=== PATIENT | female | born 1955 ===

== ENCOUNTER 2018-12-06 12:23 | Emergency (ER) | payer BC ==
--- NOTE | 2018-12-06 12:31 | PDOC ---
History of Present Illness - General Chief Complaint: Lightheaded Stated Complaint: DIZZINESS,HTN Time Seen by Provider: 12/06/18 12:30 - History of Present Illness Initial Comments: Kandi Diaz is a 63yo woman with a PMH of HTN, HLD, RA (on leflunomide) who presents with acute onset of dizziness while at work today. She states that she stood up and felt dizzy, sat down, and continued to feel dizzy. A nurse at her workplace checked her BP and found it to be high. Ms Diaz states that she initially felt lightheaded w/o any sensation of movement, but states that when she sits up currently she feels a sensation of spinning. She is unable to clarify whether the current feeling is the same as the original sensation. She denies any chest pain, SOB, headache, weakness, AMS, fever/chills, neck pain, or other symptoms. She does have a slight cough following a URI two weeks ago. She states that she had been on a cruise to the [place] and had a bad cold immediately after getting home; she also reports severe vertigo along with the cold. All of her URI symptoms have resolved other than the occasional cough. Ms Diaz also reports that she does feel slightly dehydrated. She reports avoiding fluid intake because she has urinary incontinence if she drinks liquids. She is unsure what type of incontinence but does say that she was "supposed to get a mesh" though chose not to. She denies any dysuria, unusual odor, or unusual urinary frequency. She does report taking all of her usual medications today including her BP meds. Past History - Past Medical History Allergies/Adverse Reactions: Allergies Allergy/AdvReac Type Severity Reaction Status Date / Time No Known Allergies Allergy Verified 12/06/18 14:00 Home Medications: Ambulatory Orders Atorvastatin Calcium 20 mg PO DAILY 12/06/18 Leflunomide 20 mg PO DAILY 12/06/18 Losartan/Hydrochlorothiazide [Losartan-Hctz 100-25 mg Tab] 1 tab PO DAILY Meclizine HCl 25 mg PO Q8H PRN #21 tablet 12/06/18 Review of Systems - Review of Systems Comments:: General: No fevers, no chills, no weight or appetite change, no malaise HEENT: No changes in vision, no changes in hearing, no congestion, no sore throat CV: No chest pain, no palpitations, no LE edema Pulm: No SOB, +slight cough, no wheezing GI: No nausea or vomiting, no change in bowel habits, no melena : +chronic frequency (pelvic floor dysfunction), no urgency, no dysuria Musc: No back pain, no joint swelling, no recent injury Skin: No rash, no lesions, no erythema Endo: No excessive thirst, no heat/cold intolerance Heme: No unusual bruising or bleeding, no swollen glands Neuro: No syncope, no numbness/tingling, no focal weakness, +lightheaded/vertigo Vasc: No claudication Psych: No recent change in mood, no SI or HI *Physical Exam - Physical Exam Comments: General: Uncomfortable but in no acute distress HEENT: PERRL, EOMI, no nystagmus, MMM, voice normal, normal neck ROM, no LAD Cards: RRR, no murmur appreciated Pulm: Comfortable on room air, clear to auscultation bilaterally Abd: Soft, nontender, nondistended : No CVA tenderness Ext: Atraumatic. No LE edema. ROM intact. Vasc: Extremities WWP Skin: Normal color, no rashes or lesions Neuro: A&Ox3, CN grossly intact, normal speech, motor/sensory grossly intact and symmetric. No ataxia on heel-banuelos, finger-nose, rapid alternating movements. Slightly unsteady (wobbling) on Romberg test Psych: Mood appropriate to situation ED Treatment Course - LABORATORY CBC & Chemistry Diagram: 12/06/18 13:08 12/06/18 13:08 Medical Decision Making - Medical Decision Making 12/06/18 13:55 Kandi Diaz is a 63yo woman with a PMH of HTN, HLD, RA (on leflunomide) who presents with acute onset of dizziness while at work today. She is unable to clarify whether it is vertigo or lightheadedness, and she denies any additional symptoms. She does report a h/o urinary incontinence 2/2 pelvic floor dysfunction and a recent URI with accompanying vertigo following a cruise to the [place] [facility] 2wks ago. She was hypertensive to 195/95 on arrival. - Benign physical exam w/o neurological deficits. - Ddx includes HTN urgency v emergency, labyrinthitis, benign vertigo, UTI or kidney injury. Unlikely ACS, TIA given lack of associated symptoms. - CBC, CMP, mag, phos, UA, trop, EKG, CXR for evaluation 12/06/18 14:04 - Labs reviewed. Notable for CK 307, trop negative. UA negative - CXR completed. No focal consolidation, effusion, or edema. L hemidiaphragm elevation noted w/ large gastric bubble 12/06/18 14:22 - BP rechecked. Now 174/95. Will give additional dose losartan for continued HTN 12/06/18 14:48 - Seen w/ Dr Carver. Mynor Hallpike text performed. Positive b/l with nystagmus on left test. - Walked to bathroom; unable to walk due to unsteadiness - CT head ordered for evaluation - Meclizine for symptoms 12/06/18 17:15 - CT completed. No significant abnormalities - Feels improved. Able to ambulate to bathroom w/o assistance. - Requesting to be d/c'd home. Will give neuro and ENT follow up. 12/06/18 17:40 - Spoke to Dr Cee, covering for Ms Diaz' PMD Dr Nelson. Will make sure Dr Nelson is aware, and will have the office call Ms Diaz in the morning to schedule a follow up appointment. - Updated Ms Diaz, discussed home care and follow up. She states understanding and agreement with the plan. Discussed with Dr Carver. Martha Epstein PGY1 *DC/Admit/Observation/Transfer Diagnosis at time of Disposition: Vertigo - Discharge Dispostion Disposition: HOME Condition at time of disposition: Stable Decision to Admit order: No - Prescriptions Prescriptions: Meclizine HCl 25 mg PO Q8H PRN #21 tablet PRN Reason: Vertigo - Referrals Referrals: Laina Nelson [Primary Care Provider] - Dedrick Moralez MD [Staff Physician] - Titus Davis DO [Staff Physician] - - Patient Instructions Printed Discharge Instructions: DI for Vertigo Additional Instructions: Discharge Instructions: You were seen in the emergency department for dizziness. You were found to have a condition called vertigo, which is the sensation of spinning/motion, and is most often due to a benign problem with the ears. Home Care and Follow Up: - Continue to take all of you home medications as previously prescribed - You have been prescribed a medication called meclizine. This may be taken every 6-8 hours as needed for symptoms of vertigo - Follow up with your regular doctor within the 2-3 days for management of your hypertension. You may need your medications adjusted. - You have been referred to neurology and ENT for follow up of your vertigo. Make appointments within the next week or as soon as possible. - Seek immediate medical care if your symptoms worsen, you are unable to walk safely, you develop severe nausea/vomiting with the dizziness, or you have any neurological symptoms such as one-sided weakness, numbness/tingling, or confusion. - Post Discharge Activity Forms/Work/School Notes: Back to Work
--- NOTE | 2018-12-06 12:40 | PDOC ---
Attending Attestation - Resident Resident Name: TeteMartha - ED Attending Attestation I have performed the following: I have examined & evaluated the patient, The case was reviewed & discussed with the resident, I agree w/resident's findings & plan, Exceptions are as noted - Medical Decision Making 12/06/18 12:37 63 yo F with ho RA HTN HLD here feeling lightheaded with standing and hypertension bp was 189 sbp. pt does describe a vertiginous component. which she has had in the past recently after returning home from a cruise. does feel unsteady at times with walking. pt mother has had a cva in her 40 ' s. differential ekg labs ua orthostatics. reassess. differential includes anemia htn emergency or urgency infection such as uti, electrolyte abnormality or renal dysfunction, med side effects. due to vertigo component. will obtain ct head. meclizine given and iv hydration ua . 12/06/18 15:56 <Joellen Carver - Last Filed: 12/06/18 15:56> - HPI HPI: 12/06/18 13:48 The patient is a 63-year-old female with a past medical history significant for HTN (compliant with Losartan), HLD, and RA (no on medication) presents to the emergency department with lightheadedness. The patient reports she was at work [employer], at where, when she stood up she felt a sudden onset of dizziness, that persisted even after she sat back down. The patient reports she let her boss know, who had a nearby nurse check the patients BP, which was noted to be elevated. The patient denies associated symptoms of chest pain, shortness of breath, nausea, and vomiting. Denies prior similar episodes. Reports being compliant with medication. The patient reports several weeks back she was on a cruise. The patient states she was fine throughout the stay, however when she returned home, she got sick, the patient reports she had symptoms of a cold, congestions, along with vertigo. Family history: Mother (CVA when she was around her 40's) Allergies: NKDA Social history: None reported. PCP: Dr. Nelson. - Physicial Exam PE: 12/06/18 15:04 GENERAL: Awake, alert, and fully oriented, in no acute distress HEAD: No signs of trauma EYES: PERRLA, EOMI, sclera anicteric, conjunctiva clear ENT: Auricles normal inspection, hearing grossly normal, nares patent, oropharynx clear without exudates. Moist mucosa NECK: Normal ROM, supple, no lymphadenopathy, JVD, or masses LUNGS: Breath sounds equal, clear to auscultation bilaterally. No wheezes, and no crackles HEART: Regular rate and rhythm, normal S1 and S2, no murmurs, rubs or gallops ABDOMEN: Soft, nontender. No guarding, no rebound. No masses EXTREMITIES: Normal range of motion, no edema. No clubbing or cyanosis. No cords, erythema, or tenderness NEUROLOGICAL: Normal finger to nose, normal alternating hand movement, normal heel to banuelos, 5/5 strength, cranial nerve intact, unsteady gait, positive estevan hallpike to the left with horizontal nystagmus. SKIN: Warm, Dry, normal turgor, no rashes or lesions noted. - Medical Decision Making 12/06/18 14:05 Documentation prepared by Emperatriz Chaparro, acting as medical secretary teacher for Joellen Carver MD. 12/06/18 17:[address] Nelson. 12/06/18 17:33 Dr. Padgett called back. <Emperatriz Chaparro - Last Filed: 12/06/18 17:33>
[2018-12-06 13:09] VITALS: BMI 25.7
[2018-12-06 13:21] LABS: PH,URINE 6.5 (5.0-8.0); URINE APPEARANCE CLEAR; URINE BILIRUBIN NEGATIVE (NEGATIVE); URINE COLOR YELLOW; URINE GLUCOSE (UA) NEGATIVE (NEGATIVE); URINE KETONE NEGATIVE (NEGATIVE); URINE LEUK ESTERASE NEGATIVE (NEGATIVE); URINE NITRITE NEGATIVE (NEGATIVE); URINE PROTEIN NEGATIVE (NEGATIVE); URINE UROBILINOGEN 0.2 mg/dL (0.2-1.0)
[2018-12-06 13:28] LABS: BASO % 0.7 % (0-2.0); EOS % 2.3 % (0-4.5); HEMATOCRIT 36.2 % (32.4-45.2); HEMOGLOBIN 12.1 GM/dL (10.7-15.3); LYMPH % 29.1 % (8-40); MCH 30.8 pg (25.7-33.7); MCHC 33.3 g/dl (32.0-36.0); MEAN CELL VOLUME 92.4 fl (80-96); MEAN PLT VOLUME 8.2 fl (7.5-11.1); NEUT % 55.9 % (42.8-82.8); PLATELET COUNT 230 K/MM3 (134-434); RBC 3.91 M/mm3 (3.60-5.2); RDW 14.3 % (11.6-15.6); WHITE BLOOD COUNT 3.6 K/mm3 (4.0-10.0)
[2018-12-06 13:41] VITALS: PULSE 68
[2018-12-06 13:59] LABS: ALBUMIN 4.6 g/dl (3.4-5.0); ALK PHOS 75 U/L (45-117); ANION GAP 7 MMOL/L (8-16); BILIRUBIN,TOTAL 0.5 mg/dL (0.2-1); BLOOD UREA NITROGEN 16 mg/dL (7-18); CALCIUM 9.5 mg/dL (8.5-10.1); CHLORIDE 102 mmol/L (98-107); CO2 29 mmol/L (21-32); CREATININE 0.6 mg/dL (0.55-1.3); GLUCOSE,RANDOM 116 mg/dL (74-106); PHOSPHOROUS 3.5 mg/dL (2.5-4.9); POTASSIUM 3.5 mmol/L (3.5-5.1); SGOT/AST 23 U/L (15-37); SGPT/ALT 28 U/L (13-61); SODIUM 138 mmol/L (136-145); TOT PROT 7.9 g/dl (6.4-8.2)
[2018-12-06] MEDS ORDERED: MECLIZINE HCL 25 MG TABLET (FP) PO ONE (14:45)
[2018-12-06] MEDS ORDERED: MECLIZINE HCL 25 MG TABLET (FP) ONE (15:31)
--- NOTE | 2018-12-06 15:58 | EKG ---
Test Reason : Blood Pressure : / mmHG Vent. Rate : 061 BPM Atrial Rate : 061 BPM P-R Int : 178 ms QRS Dur : 088 ms QT Int : 462 ms P-R-T Axes : 025 021 037 degrees QTc Int : 465 ms NORMAL SINUS RHYTHM NORMAL ECG WHEN COMPARED WITH ECG OF 02-MAR-2011 14:01, NO SIGNIFICANT CHANGE WAS FOUND Confirmed by SABI HILL MD ([id number]) on 12/06/2018 3:58:33 PM Referred By: Confirmed By:SABI HILL MD
[2018-12-06 18:41] VITALS: BP 170/93; TEMP 98
== END 2018-12-06 18:20 | disposition home or self-care (01) ==
LOC: JER 12:23
DX: R42 Dizziness and giddiness (principal); I10 Essential (primary) hypertension; M06.9 Rheumatoid arthritis, unspecified; E78.5 Hyperlipidemia, unspecified
CPT/HCPCS: 36415; 70450-TC; 71046-TC-FY; 80053; 81003; 82550; 82553; 83735; 84100; 84484; 84703; 85025; 93005; 93010; 99283-25